=== PATIENT | male | born 2000 | race Asian ===

== ENCOUNTER 2025-05-16 22:34 | Emergency (ER) | payer BC ==
[~2025-05-16] VITALS: Ht 182.9 cm; Wt 87.1 kg
[2025-05-16 22:49] VITALS: O2SAT 98
[2025-05-16] MEDS ORDERED: AMOX-494 MT (23:45)
[2025-05-16] MEDS ORDERED: IBUP-1455 MT (23:45)
[2025-05-17] MEDS: KETOROLAC 30MG/ML VIAL IM ONE (00:04)
[2025-05-17] MEDS: AMOXICILLIN 500MG CAPSULE PO ONE (00:04)
[2025-05-17 00:10] VITALS: BP 120/87; PULSE 82; RESP 16; TEMP 36.7; O2SAT 98
== END 2025-05-17 00:10 | disposition home or self-care (01) ==
LOC: ER 22:34
DX: K08.89 Other specified disorders of teeth and supporting structures (principal)
CPT/HCPCS: 99283; 96372; J1885